=== PATIENT | female | born 1985 | race Caucasian/White ===

== ENCOUNTER 2019-05-05 09:41 | Emergency (ER) | payer SELFPAY ==
[~2019-05-05] VITALS: Ht 165.1 cm; Wt 52.2 kg
[2019-05-05 10:05] VITALS: BP 134/84
== END 2019-05-05 10:24 | disposition left against medical advice (07) ==
LOC: EDBD 09:41 → ER 09:56
DX: M25.511 Pain in right shoulder (principal); Z53.21 Procedure and treatment not carried out due to patient leaving prior to being seen by health care provider; Y08.89XA Assault by other specified means, initial encounter; Y93.89 Activity, other specified; Y99.8 Other external cause status; Y92.89 Other specified places as the place of occurrence of the external cause

== ENCOUNTER 2019-06-17 13:59 | Emergency (ER) | payer SELFPAY ==
[~2019-06-17] VITALS: Ht 165.1 cm; Wt 49.0 kg
[2019-06-17 14:34] VITALS: BP 113/92
== END 2019-06-17 16:29 | disposition left against medical advice (07) ==
LOC: ER 13:59
DX: F11.23 Opioid dependence with withdrawal (principal); F41.9 Anxiety disorder, unspecified; F17.210 Nicotine dependence, cigarettes, uncomplicated

== ENCOUNTER 2019-06-22 09:58 | Emergency (ER) | payer SELFPAY ==
[~2019-06-22] VITALS: Ht 165.1 cm; Wt 51.3 kg
[2019-06-22 10:08] VITALS: BP 126/72
[2019-06-22 10:41] LABS: Urine Pregnacy Test Negative (Negative)
[2019-06-22 10:44] LABS: Urine Bacteria MANY /hpf (None Seen); Urine Blood 1+ /uL (Negative); Urine Mucus FEW (None Seen); Urine Specific Gravity 1.026 (1.001-1.035); Urine WBC 399 /hpf (0 - 5)
[2019-06-22 10:49] LABS: Basophils # (auto) 0.1 uL; Basophils % (auto) 1.2 % (0.0-2.0); Eosinophils # (auto) 0.2 uL; Eosinophils % (auto) 2.4 % (0.0-7.0); Hematocrit 38.4 % (36.0-46.0); Hemoglobin 12.9 g/dL (12.2-16.2); Lymphocytes # (auto) 2.3 uL; Mean Corpuscular Hemoglobin 31.3 pg (28.0-32.0); Mean Corpuscular Hgb Conc. 33.5 g/dL (32.0-36.0); Mean Corpuscular Volume 93.2 fL (80.0-100.0); Monocytes # (auto) 0.5 uL; Monocytes % (auto) 7.4 % (0.0-12.0); Neutrophils # (auto) 4.1 uL; Nucleated Red Blood Cells % 0.1 %; Platelet Count (auto) 281 10^3/uL (140-450); Red Blood Cells 4.12 10^6/uL (4.0-5.20); Red Cell Distribution Width 13.3 % (11.8-14.3); White Blood Cell 7.2 10^3/uL (4.4-10.8)
[2019-06-22 10:52] LABS: Amphetamine Screen, Urine POSITIVE (NEGATIVE); Barbiturate Scree,Urine NEGATIVE (NEGATIVE); Benzodiazephine Screen, Urine NEGATIVE (NEGATIVE); Cannabinoid Screen, Urine POSITIVE (NEGATIVE); Cocaine Screen, Urine NEGATIVE (NEGATIVE); Opiate Scree,Urine NEGATIVE (NEGATIVE); Phencyclidine Screen, Urine NEGATIVE (NEGATIVE)
[2019-06-22 11:08] LABS: Albumin 3.6 g/dL (3.4-5.0); Anion Gap 8 (5-15); Calcium 8.6 mg/dL (8.5-10.1); Carbon Dioxide 29 mmol/L (21-32); Chloride 104 mmol/L (98-107); Glucose 68 mg/dL (74-106); Potassium 3.7 mmol/L (3.5-5.1); Sodium 141 mmol/L (136-145)
[2019-06-22 11:12] LABS: Alanine Aminotransferase 17 U/L (13-56); Alkaline Phosphatase 94 U/L (45-117); Aspartate Aminotransferase 18 U/L (15-37); Bilirubin, Total 1.1 mg/dL (0.2-1.0); Blood Alcohol < 3.0 mg/dL (0-5); GFR African American 112 mL/min; GFR Non-African American 92 mL/min
[2019-06-22 11:15] LABS: BUN/Creatinine Ratio 16.9; Blood Urea Nitrogen 13 mg/dL (7-18)
== END 2019-06-22 12:11 | disposition home or self-care (01) ==
LOC: ER 09:58
DX: Z04.6 Encounter for general psychiatric examination, requested by authority (principal); N39.0 Urinary tract infection, site not specified; F15.10 Other stimulant abuse, uncomplicated; F17.210 Nicotine dependence, cigarettes, uncomplicated; F31.9 Bipolar disorder, unspecified
CPT/HCPCS: 36415; 80053; 80307; 80320; 81001; 81025; 85025

== ENCOUNTER 2020-04-27 15:02 | Emergency (ER) | payer MEDICAID, OTHER ==
[~2020-04-27] VITALS: Ht 172.7 cm; Wt 51.3 kg
[2020-04-27 15:13] VITALS: BP 146/105
== END 2020-04-27 17:44 | disposition home or self-care (01) ==
LOC: ER 15:02
DX: F15.10 Other stimulant abuse, uncomplicated (principal); R53.83 Other fatigue; F17.210 Nicotine dependence, cigarettes, uncomplicated; F12.10 Cannabis abuse, uncomplicated; Z59.0 Homelessness

== ENCOUNTER 2020-05-27 22:59 | Inpatient (IN) | payer MEDICAID ==
[~2020-05-27] VITALS: Ht 165.1 cm; Wt 54.4 kg
[2020-05-27] MEDS ORDERED: SODIUM CHLORIDE 0.9% 1,500 ML IV ONE (23:45)
[2020-05-28 00:38] LABS: Basophils # (auto) 0 10 ^3/uL (0-0.2); Basophils % (auto) 0.2 % (0.0-2.0); Eosinophils # (auto) 0.1 10 ^3/uL (0-0.8); Eosinophils % (auto) 0.4 % (0.0-7.0); Hemoglobin 11.7 g/dL (12.2-16.2); Lymphocytes # (auto) 2.1 10 ^3/uL (0.4-5.4); Mean Corpuscular Hemoglobin 30.5 pg (28.0-32.0); Mean Corpuscular Hgb Conc. 33.4 g/dL (32.0-36.0); Mean Corpuscular Volume 91.3 fL (80.0-100.0); Monocytes # (auto) 2.2 10 ^3/uL (0-1.3); Neutrophils # (auto) 11.6 10 ^3/uL (1.6-8.6); Neutrophils % (auto) 72.4 % (37.0-80.0); Nucleated Red Blood Cells % 0.1 %; Platelet Count (auto) 276 10^3/uL (140-450); Red Blood Cells 3.83 10^6/uL (4.0-5.20); Red Cell Distribution Width 13.5 % (11.8-14.3); White Blood Cell 16.1 10^3/uL (4.4-10.8)
[2020-05-28 00:56] LABS: Albumin 3.1 g/dL (3.4-5.0); BUN/Creatinine Ratio 14.6; Calcium 8.3 mg/dL (8.5-10.1); Potassium 3.3 mmol/L (3.5-5.1)
[2020-05-28 00:59] LABS: Bilirubin, Total 0.9 mg/dL (0.2-1.0); Total Protein 7.6 g/dL (6.4-8.2)
[2020-05-28] MEDS: PIPERACILLIN-TAZOB 3.375GM 100 ML IV SCH ×3 (01:03→12:53)
[2020-05-28 01:32] LABS: INR 1.03 (0.9-1.15)
[2020-05-28 01:38] LABS: Fibrinogen > 860 mg/dL (177-375); Urine Bacteria FEW /hpf (None Seen); Urine Blood TRACE /uL (Negative); Urine Mucus FEW (None Seen); Urine Specific Gravity 1.008 (1.001-1.035); Urine WBC 16 /hpf (0 - 5)
[2020-05-28 01:48] LABS: Alcohol, Urine < 3.0 mg/dL (0-10); Amphetamine Screen, Urine POSITIVE (NEGATIVE); Barbiturate Scree,Urine NEGATIVE (NEGATIVE); Benzodiazephine Screen, Urine NEGATIVE (NEGATIVE); Cannabinoid Screen, Urine POSITIVE (NEGATIVE); Cocaine Screen, Urine NEGATIVE (NEGATIVE); Opiate Scree,Urine NEGATIVE (NEGATIVE); Phencyclidine Screen, Urine NEGATIVE (NEGATIVE)
[2020-05-28] MEDS ORDERED: ACETAMINOPHEN 325 MG TAB PO ONE (02:30)
[2020-05-28] MEDS ORDERED: IOHEXOL 350 MG/ML 100ML IJ ONE (05:49)
[2020-05-28] MEDS ORDERED: traMADol HCL 50 MG TAB PO PRN (09:30)
[2020-05-28] MEDS ORDERED: MORPHINE SULF INJ 2 MG/ML SYRINGE 1ML IV PRN (09:30)
[2020-05-28] MEDS ORDERED: cefTRIAXone 1GM/50ML D5W 50 ML IV ONE ×2 (09:30→09:39)
[2020-05-28] MEDS ORDERED: ACETAMINOPHEN 500 MG TAB PO PRN (09:30)
[2020-05-28] MEDS ORDERED: PROMETHAZINE HCL 25 MG/ML 1ML IV PRN (09:30)
[2020-05-28] MEDS ORDERED: TEMAZEPAM 15 MG CAP PO PRN (09:30)
[2020-05-28] MEDS ORDERED: NITROGLYCERIN 0.4 MG SL TAB SL PRN (09:30)
[2020-05-28] MEDS ORDERED: FAMOTIDINE 20 MG TAB ONE (09:39)
[2020-05-28] MEDS ORDERED: VANCOMYCIN 1GM/250ML 250 ML IV SCH (10:00)
[2020-05-28] MEDS: FAMOTIDINE 20 MG TAB PO SCH ×2 (10:28→22:12)
[2020-05-28] MEDS: SODIUM CHLORIDE 0.9% 1,000 ML IV SCH ×2 (10:28→20:00)
[2020-05-28 10:36] LABS: Amylase 18 U/L (25-115); Lipase 59 U/L (73-393)
--- NOTE | 2020-05-28 21:00 | NUR ---
Tele admit from ER [facility] admitted to tele/MS after SBAR received. Patient oriented to [facility]ANEL POOL, RN primary RN, unit, room, bed, and unit policies regarding patient care and visiting hours. Bed in lowest possible position, brakes locked, side rails X 2 up, call light within reach. Patient reports no distress or discomfort. Weighed by bed scale and encouraged to call if pt needs something. All questions and concerns addressed, patient verbalized understanding. Note: R AC 20 g IV is patent running NaCl 0.9% 100 ml/h.
[2020-05-28] MEDS ORDERED: VANCOMYCIN PER PHARMACY 0 MG IV SCH (21:30)
[2020-05-28 22:10] VITALS: BP 102/69
[2020-05-29] MEDS ORDERED: VANCOMYCIN 1GM/250ML 250 ML IV SCH (01:00)
[2020-05-29 01:57] VITALS: BP 144/71
[2020-05-29] MEDS ORDERED: RISP1TAB63 PO (03:16)
[2020-05-29] MEDS ORDERED: HYDR-3682 PO (03:16)
[2020-05-29 05:00] VITALS: BP 118/76
[2020-05-29] MEDS: SODIUM CHLORIDE 0.9% 1,000 ML IV SCH ×2 (05:23→17:40)
[2020-05-29 06:32] LABS: Basophils # (auto) 0.1 10 ^3/uL (0-0.2); Basophils % (auto) 0.6 % (0.0-2.0); Eosinophils # (auto) 0.1 10 ^3/uL (0-0.8); Eosinophils % (auto) 1.5 % (0.0-7.0); Hemoglobin 11.4 g/dL (12.2-16.2); Lymphocytes # (auto) 2.4 10 ^3/uL (0.4-5.4); Lymphocytes % (auto) 24.7 % (10.0-50.0); Mean Corpuscular Hemoglobin 30.5 pg (28.0-32.0); Mean Corpuscular Hgb Conc. 33.4 g/dL (32.0-36.0); Mean Corpuscular Volume 91.2 fL (80.0-100.0); Monocytes # (auto) 1.1 10 ^3/uL (0-1.3); Monocytes % (auto) 11.5 % (0.0-12.0); Neutrophils # (auto) 6.1 10 ^3/uL (1.6-8.6); Neutrophils % (auto) 61.7 % (37.0-80.0); Nucleated Red Blood Cells % 0.1 %; Platelet Count (auto) 275 10^3/uL (140-450); Red Blood Cells 3.73 10^6/uL (4.0-5.20); Red Cell Distribution Width 13.3 % (11.8-14.3); White Blood Cell 9.9 10^3/uL (4.4-10.8)
--- NOTE | 2020-05-29 07:00 | NUR ---
Opening Shift Note Assumed care of patient, awake and alert. No S/S of distress/SOB or pain. Instructed on POC and to call for assist PRN, will continue to monitor for changes Q1hr and PRN.
[2020-05-29 07:18] LABS: Calcium 8.1 mg/dL (8.5-10.1); Potassium 3.4 mmol/L (3.5-5.1)
[2020-05-29 07:22] LABS: Albumin 2.6 g/dL (3.4-5.0); BUN/Creatinine Ratio 14.1
[2020-05-29 07:25] LABS: Bilirubin, Total 0.7 mg/dL (0.2-1.0); Total Protein 6.7 g/dL (6.4-8.2)
[2020-05-29] MEDS ORDERED: cefTRIAXone 1GM/50ML D5W 50 ML IV SCH ×2 (09:00)
--- NOTE | 2020-05-29 09:14 | NUR ---
AMA TO SMOKE SIGNED
--- NOTE | 2020-05-29 09:35 | NUR ---
PATIENT WENT DOWN TO SMOKE
[2020-05-29 09:54] VITALS: BP 112/73
[2020-05-29] MEDS: FAMOTIDINE 20 MG TAB PO SCH (10:16)
[2020-05-29] MEDS ORDERED: levoFLOXacin 500 MG TAB PO SCH (11:30)
--- NOTE | 2020-05-29 12:19 | NUR ---
[employer] Received a page from DARY Scanlon regarding social service consult for home health safety evaluation and homeless. Patient is not homeless. Patient will return home with father Mac [phone] after discharge. Per DARY Scanlon patient is refusing home health service.
--- NOTE | 2020-05-29 12:20 | NUR ---
Patient will be going to stay at her father William home upon discharge. Patient is refusing home health evaluation at this time.
--- NOTE | 2020-05-29 12:45 | NUR ---
ARMAND DISCUSSED POC WITH PATIENT. PATIENT TO BE DISCHARGED TODAY.
[2020-05-29 13:00] VITALS: BP 117/84
--- NOTE | 2020-05-29 17:00 | NUR ---
PAGED MOQATTASH NO ORDERS PLACED YET FOR DISCHARGE
[2020-05-29] MEDS ORDERED: LEVO-28 PO (18:13)
--- NOTE | 2020-05-29 18:33 | NUR ---
Discharge instructions given as ordered. Encourage to follow up with PMD as instructed. All questions and concerns addressed. Patient verbalized understanding. Medication reconciliation form completed and copy given to patient. Home medications held in Pharmacy returned to patient. IV removed with catheter intact. Telemetry unit returned to ICU. Patient taken to vehicle via wheelchair with all personal belongings, accompanied by staff and family member. No distress noted at time of departure.
== END 2020-05-29 18:38 | disposition home or self-care (01) | DRG 463 ==
LOC: EDBD 22:59 → ER 22:59 → TELE 23:00 → TELE-WESTW 05-28 21:11
PROVIDERS: ADMIT Internal Medicine; ATTEND Internal Medicine
DX: N10 Acute pyelonephritis (principal); F15.20 Other stimulant dependence, uncomplicated; F20.9 Schizophrenia, unspecified; F17.210 Nicotine dependence, cigarettes, uncomplicated; Z59.0 Homelessness; N13.9 Obstructive and reflux uropathy, unspecified; F32.9 Major depressive disorder, single episode, unspecified; F41.9 Anxiety disorder, unspecified; Z20.828 Contact with and (suspected) exposure to other viral communicable diseases; F12.20 Cannabis dependence, uncomplicated; N39.0 Urinary tract infection, site not specified
CPT/HCPCS: 36415; 36600; 71045; 71275; 80053; 80307; 81001; 82150; 82553; 82728; 82805; 83605; 83615; 83690; 84484; 84702; 85025; 85379; 85384; 85610; 85730; 86850; 86900; 86901; 87040; 87070; 87086; 87088; 87186; 87205; 87804; 87880; G0378; J0696; J2543

== ENCOUNTER 2021-06-17 13:28 | Emergency (ER) | payer MEDICAID ==
[~2021-06-17] VITALS: Ht 172.7 cm; Wt 68.0 kg
[2021-06-17 13:28] VITALS: BP 141/96
[~2021-06-17 13:28] MED LIST: HYDR-3682 PO; LEVO-28 PO; RISP1TAB63 PO
== END 2021-06-17 14:40 | disposition left against medical advice (07) ==
LOC: ER 13:28 → EDBD 13:28 → ER 14:40
DX: R07.89 Other chest pain (principal); Z53.21 Procedure and treatment not carried out due to patient leaving prior to being seen by health care provider

== ENCOUNTER 2021-09-06 15:40 | Emergency (ER) | payer MEDICAID ==
[~2021-09-06] VITALS: Ht 162.6 cm; Wt 53.1 kg
[2021-09-06 15:40] VITALS: BP 113/80
== END 2021-09-06 23:44 | disposition left against medical advice (07) ==
LOC: ER 15:40
DX: S01.81XD Laceration without foreign body of other part of head, subsequent encounter (principal); Z53.21 Procedure and treatment not carried out due to patient leaving prior to being seen by health care provider; X58.XXXD Exposure to other specified factors, subsequent encounter

== ENCOUNTER 2022-03-25 13:30 | Emergency (ER) | payer MEDICAID ==
[~2022-03-25] VITALS: Ht 162.6 cm; Wt 52.2 kg
[2022-03-25 13:33] VITALS: BP 116/70
[2022-03-25] MEDS ORDERED: NAPR500T31 PO (14:46)
== END 2022-03-25 14:53 | disposition home or self-care (01) ==
LOC: ER 13:40
DX: S60.221A Contusion of right hand, initial encounter (principal); F17.210 Nicotine dependence, cigarettes, uncomplicated; Z59.00 Homelessness unspecified; Z79.2 Long term (current) use of antibiotics; Z79.899 Other long term (current) drug therapy; W22.01XA Walked into wall, initial encounter; Y93.89 Activity, other specified; Y92.89 Other specified places as the place of occurrence of the external cause; Y99.8 Other external cause status
CPT/HCPCS: 73130